=== PATIENT | female | born 1935 | race Two or more races ===

== ENCOUNTER 2017-08-17 17:04 | Emergency (ER) | payer MEDICARE, OTHER ==
[~2017-08-17] VITALS: Ht 162.6 cm; Wt 59.0 kg
[2017-08-17] MEDS ORDERED: Sodium Chloride 500ML 500 ML IV ONE (17:18)
[2017-08-17 18:01] LABS: EOSINOPHILS % (AUTO) 1.7 % (0.0-3.0); HEMOGLOBIN 8.2 G/DL (12.0-16.0); LYMPHOCYTES % (AUTO) 21.5 % (20.0-45.0); MEAN CORPUSCULAR VOLUME 90 FL (80-99); NEUTROPHILS % (AUTO) 72.9 % (45.0-75.0); PLATELET COUNT 327 K/UL (150-450); RED BLOOD COUNT 2.79 M/UL (4.20-5.40); RED CELL DISTRIBUTION WIDTH 15.2 % (11.6-14.8); WHITE BLOOD COUNT 15.9 K/UL (4.8-10.8)
[2017-08-17 18:13] LABS: ANION GAP 13 mmol/L (5-15); BLOOD UREA NITROGEN 102 mg/dL (7-18); CALCIUM 7.2 MG/DL (8.5-10.1); CARBON DIOXIDE 22 MMOL/L (21-32); CHLORIDE 110 MMOL/L (98-107); POTASSIUM 4.1 MMOL/L (3.5-5.1); SODIUM 145 MMOL/L (136-145)
--- NOTE | 2017-08-17 18:16 | Emergency Room Report ---
History of Present Illness General Chief Complaint: Abnormal Labs Source: Medical Record, EMS Present Illness HPI 82-year-old female presents ED for evaluation. Patient sent from alf facility or abnormal labs. Noted to have low hemoglobin and hematocrit. Upon arrival patient showing no signs of distress. No reported blood in stool. No reported hematemesis. Patient unable to provide any additional history at this time. No other aggravating relieving factors. No other associated symptoms Allergies: Coded Allergies: No Known Allergies (Unverified , 08/17/17) Patient History Past Medical History: DM, HTN Past Surgical History: none Pertinent Family History: none Social History: Denies: smoking, alcohol use, drug use Now: No Immunizations: UTD Reviewed Nursing Documentation: PMH: Agreed; PSxH: Agreed Nursing Documentation-PMH Hx Cardiac Problems: Yes Hx Hypertension: Yes Hx COPD: No - ANEMIA ,BACTEREMIA,PRESSURE ULCERS,UTI Hx Diabetes: Yes Hx Cerebrovascular Accident: No - PVD FENAL FAILURE Review of Systems All Other Systems: limited Physical Exam Vital Signs Date Time Temp Pulse Resp B/P (MAP) Pulse Ox O2 Delivery O2 Flow Rate FiO2 08/17/17 17:06 98.4 104 22 130/54 92 Room Air 98.4 Sp02 EP Interpretation: reviewed, normal General Appearance: no apparent distress, alert, GCS 15, non-toxic Head: normocephalic, atraumatic Eyes: bilateral eye normal inspection, bilateral eye PERRL ENT: hearing grossly normal, normal pharynx, no angioedema, normal voice Neck: full range of motion, supple/symm/no masses Respiratory: chest non-tender, lungs clear, normal breath sounds, speaking full sentences Cardiovascular #1: regular rate, rhythm, no edema Cardiovascular #2: 2+ carotid (R), 2+ carotid (L), 2+ radial (R), 2+ radial (L) , 2+ dorsalis pedis (R), 2+ dorsalis pedis (L) Gastrointestinal: normal bowel sounds, non tender, soft, non-distended, no guarding, no rebound Rectal: deferred Genitourinary: normal inspection, no CVA tenderness Musculoskeletal: back normal, gait/station normal, normal range of motion, non- tender Neurologic: alert, oriented x3, responsive, motor strength/tone normal, sensory intact, speech normal Psychiatric: judgement/insight normal, memory normal, mood/affect normal, no suicidal/homicidal ideation Reflexes: 3+ bicep (R), 3+ bicep (L), 3+ tricep (R), 3+ tricep (L), 3+ knee (R) , 3+ knee (L) Skin: normal color, no rash, warm/dry, well hydrated Lymphatic: no adenopathy Medical Decision Making Diagnostic Impression: Primary Impression: Anemia Qualified Codes: D64.9 - Anemia, unspecified Additional Impressions: Leukocytosis Qualified Codes: D72.829 - Elevated white blood cell count, unspecified Renal insufficiency ER Course Hospital Course 82-year-old female presents to ED for evaluation of possible anemia Differential diagnoses include: anemia requiring transfusion, microcytic anemia , macrocytic anemia, heavy blood loss Clinical course Patient placed on stretcher. After initial history and physical I ordered labs , IVFs Labs- leukocytosis noted, hemoglobin 8.2. BUN/Cr 102/4. UA negative EKG - sinus tachycardia, no acute ischemic changes interpreted by me Chest x-ray shows left lower lobe effusion versus early consolidation abx given. IV fluids given. Tachycardia slowly resolving. Because of insurance patient will be transferred Diagnosis - anemia, leukocytosis, renal insufficiency Transferred in serious condition Labs Test 08/17/17 17:40 08/17/17 18:10 08/17/17 18:23 White Blood Count 15.9 K/UL (4.8-10.8) Red Blood Count 2.79 M/UL (4.20-5.40) Hemoglobin 8.2 G/DL (12.0-16.0) Hematocrit 25.0 % (37.0-47.0) Mean Corpuscular Volume 90 FL (80-99) Mean Corpuscular Hemoglobin 29.5 PG (27.0-31.0) Mean Corpuscular Hemoglobin Concent 32.8 G/DL (32.0-36.0) Red Cell Distribution Width 15.2 % (11.6-14.8) Platelet Count 327 K/UL (150-450) Mean Platelet Volume 5.9 FL (6.5-10.1) Neutrophils (%) (Auto) 72.9 % (45.0-75.0) Lymphocytes (%) (Auto) 21.5 % (20.0-45.0) Monocytes (%) (Auto) 3.0 % (1.0-10.0) Eosinophils (%) (Auto) 1.7 % (0.0-3.0) Basophils (%) (Auto) 1.0 % (0.0-2.0) Sodium Level 145 MMOL/L (136-145) Potassium Level 4.1 MMOL/L (3.5-5.1) Chloride Level 110 MMOL/L (98-107) Carbon Dioxide Level 22 MMOL/L (21-32) Anion Gap 13 mmol/L (5-15) Blood Urea Nitrogen 102 mg/dL (7-18) Creatinine 4.0 MG/DL (0.55-1.30) Estimat Glomerular Filtration Rate mL/min (>60) Glucose Level 182 MG/DL (74-106) Calcium Level 7.2 MG/DL (8.5-10.1) Total Bilirubin 0.2 MG/DL (0.2-1.0) Aspartate Amino Transf (AST/SGOT) 18 U/L (15-37) Alanine Aminotransferase (ALT/SGPT) 13 U/L (12-78) Alkaline Phosphatase 92 U/L (46-116) Total Protein 6.2 G/DL (6.4-8.2) Albumin 1.8 G/DL (3.4-5.0) Globulin 4.4 g/dL Albumin/Globulin Ratio 0.4 (1.0-2.7) Urine Color Pale yellow Urine Appearance Clear Urine pH 5 (4.5-8.0) Urine Specific [place] 1.010 (1.005-1.035) Urine Protein 2+ (NEGATIVE) Urine Glucose (UA) Negative (NEGATIVE) Urine Ketones Negative (NEGATIVE) Urine Occult Blood Negative (NEGATIVE) Urine Nitrite Negative (NEGATIVE) Urine Bilirubin Negative (NEGATIVE) Urine Urobilinogen Normal MG/DL (0.0-1.0) Urine Leukocyte Esterase 1+ (NEGATIVE) Urine RBC 0-2 /HPF (0 - 2) Urine WBC 5-10 /HPF (0 - 2) Urine Squamous Epithelial Cells Few /LPF (NONE/OCC) Urine Bacteria None /HPF (NONE) Prothrombin Time 11.7 SEC (9.30-11.50) Prothromb Time International Ratio 1.1 (0.9-1.1) Activated Partial Thromboplast Time 31 SEC (23-33) EKG Diagnostic Results Rate: tachycardiac Rhythm: NSR ST Segments: no acute changes ASA given to the pt in ED: No Rhythm Strip Diag. Results EP Interpretation: yes Rhythm: NSR, no PVC's, no ectopy Chest X-Ray Diagnostic Results Chest X-Ray Diagnostic Results : Chest X-Ray Ordered: Yes # of Views/Limited/Complete: 1 View Indication: Shortness of Breath EP Interpretation: Yes Interpretation: no pneumothorax, no acute cardiopulmonary disease, other - L lower lung effusion Impression: Other - effusion/infiltrate Electronically Signed by: Electronically signed by Clinton Li MD Last Vital Signs Date Time Temp Pulse Resp B/P (MAP) Pulse Ox O2 Delivery O2 Flow Rate FiO2 08/17/17 17:06 98.4 104 22 130/54 92 Room Air 98.4 Status: improved Disposition: XFER [facility] HOSP Condition: Serious Referrals: [facility],REFERRING (PCP) Clinton Li MD Aug 17, 2017 18:16
[2017-08-17 18:18] LABS: ALANINE AMINOTRANSFERASE 13 U/L (12-78); ALBUMIN 1.8 G/DL (3.4-5.0); ALBUMIN/GLOBULIN RATIO 0.4 (1.0-2.7); ALKALINE PHOSPHATASE 92 U/L (46-116); ASPARTATE AMINO TRANSFERASE 18 U/L (15-37); BILIRUBIN,TOTAL 0.2 MG/DL (0.2-1.0)
[2017-08-17] MEDS ORDERED: FERROUS SULFAT325 MG ORAL (18:28)
[2017-08-17] MEDS ORDERED: COLACE100 MG ORAL (18:28)
[2017-08-17 18:29] VITALS: BP 129/55
[2017-08-17] MEDS ORDERED: POTASSIUM CHLO20 ME1 ORAL (18:30)
[2017-08-17] MEDS ORDERED: GLUCOPHAGE500 MG ORAL (18:31)
[2017-08-17] MEDS ORDERED: MULTIVITAMINS1 EAC2 ORAL (18:32)
[2017-08-17] MEDS ORDERED: MILK OF MA400 MG/51 ORAL (18:32)
[2017-08-17] MEDS ORDERED: NAMENDA5 MG ORAL (18:33)
[2017-08-17] MEDS ORDERED: AMLODIPINE BESY10 MG ORAL (18:34)
[2017-08-17] MEDS ORDERED: SIMVASTATIN20 MG ORAL (18:35)
[2017-08-17] MEDS ORDERED: SENNO8.6 MG ORAL (18:35)
[2017-08-17] MEDS ORDERED: UTI-STAT L3875 MG/31 PO (18:36)
[2017-08-17] MEDS ORDERED: ACETAMINOPHEN325 M1 ORAL (18:36)
[2017-08-17] MEDS ORDERED: VITAMIN C500 M1 ORAL (18:37)
[2017-08-17 18:56] LABS: APPEARANCE,URINE CLEAR; BILIRUBIN, URINE NEGATIVE (NEGATIVE); COLOR,URINE PALE YELLOW; GLUCOSE, URINE (UA) NEGATIVE (NEGATIVE); KETONES,URINE NEGATIVE (NEGATIVE); LEUKOCYTE ESTERASE ,URINE 1+ (NEGATIVE); NITRITE,URINE NEGATIVE (NEGATIVE); PH,URINE 5 (4.5-8.0); PROTEIN,URINE 2+ (NEGATIVE); UROBILINOGEN,URINE NORMAL MG/DL (0.0-1.0)
[2017-08-17 19:12] LABS: INR 1.1 (0.9-1.1)
[2017-08-17 21:30] VITALS: BP 142/97
[2017-08-17 23:33] VITALS: BP 142/62
[2017-08-18 00:55] VITALS: BP 124/80
[2017-08-18 01:00] VITALS: BP 124/80
--- NOTE | 2017-08-18 11:58 | Diagnostic Imaging Report ---
Indication: Altered mental status Technique: XRAY Chest 1v Comparison: None Findings: Heart size and mediastinal contours are within normal limits given technique. There is no focal consolidation, pneumothorax or pleural effusion. There are degenerative changes in the spine. Osseous structures demonstrate no acute abnormality. Impression: No definite radiographic evidence of acute cardiopulmonary disease.
--- NOTE | 2017-08-19 18:14 | Cardiology Report ---
APPROVED REPORT EKG Measurement Heart [id number] Sinus tachycardia with premature atrial complexes Otherwise normal ECG
== END 2017-08-18 01:00 | disposition short-term general hospital (02) ==
LOC: EDBD 17:04 → EMR 17:45
DX: D64.9 Anemia, unspecified (principal); D72.829 Elevated white blood cell count, unspecified; N28.9 Disorder of kidney and ureter, unspecified; I10 Essential (primary) hypertension; E11.9 Type 2 diabetes mellitus without complications
CPT/HCPCS: 36415; 71045; 80053; 81003; 85025; 85610; 85730; 86850; 86900; 86901; 87081; 93005; 96361; 96374; 96375; 99284; J1956